=== PATIENT | male | born 1975 | race Caucasian/White ===

== ENCOUNTER → 2019-09-16 | Outpatient (CLI) | payer BC ==
[~2019-09-16] MED LIST: BACTRIM DS 8001 TA1 PO; CLINDAMYCIN HC300 MG PO; FLEXERIL10 MG PO; MOTRIN800 MG PO
== END | disposition home or self-care (01) ==
LOC: COVID19 12:16
DX: Z03.818 Encounter for observation for suspected exposure to other biological agents ruled out (principal); Z79.899 Other long term (current) drug therapy

== ENCOUNTER 2021-04-01 08:20 | Emergency (ER) | payer OTHER, BC ==
[~2021-04-01] VITALS: Ht 180.3 cm; Wt 99.8 kg
== END 2021-04-01 09:29 | disposition short-term general hospital (02) ==
LOC: ED 08:20
DX: T22.212A Burn of second degree of left forearm, initial encounter (principal); T24.201A Burn of second degree of unspecified site of right lower limb, except ankle and foot, initial encounter; T24.202A Burn of second degree of unspecified site of left lower limb, except ankle and foot, initial encounter; T25.222A Burn of second degree of left foot, initial encounter; T23.272A Burn of second degree of left wrist, initial encounter; T23.202A Burn of second degree of left hand, unspecified site, initial encounter; T31.10 Burns involving 10-19% of body surface with 0% to 9% third degree burns; I10 Essential (primary) hypertension; X12.XXXA Contact with other hot fluids, initial encounter; Y93.89 Activity, other specified; Y92.89 Other specified places as the place of occurrence of the external cause; Y99.8 Other external cause status

== ENCOUNTER 2024-06-20 10:20 | Emergency (ER) | payer OTHER, BC ==
[~2024-06-20] VITALS: Ht 180.3 cm; Wt 99.8 kg
[2024-06-20] MEDS ORDERED: SODIUM CHLORIDE 0.9% 1,000 ML IV ONE (10:50)
[2024-06-20 11:03] LABS: BASO # 0.1 10*3/uL (0.0-0.1); BASO % 0.7 % (0.0-1.0); EOS # 0.1 10*3/uL (0.0-0.4); EOS % 1.4 % (1.0-4.0); MEAN CELL VOLUME 87.7 fl (80.0-94.0); MEAN CORPUSCULAR HGB 29.8 pg (27.0-31.0); MEAN PLATELET VOLUME 9.4 fl (9.6-12.3); MONO # 0.5 10*3/uL (0.1-1.0); MONO % 5.3 % (3.0-9.0); NEUT # 4.7 10*3/uL (2.3-7.9); NEUT % 55.6 % (47.0-73.0); PLATELET COUNT AUTOMATED 292 10*3/uL (130-400); RED BLOOD COUNT 5.13 10*6/uL (4.50-5.90); RED CELL DISTRI WIDTH 12.2 % (0-14.5); WHITE BLOOD COUNT 8.5 10*3/uL (4.8-10.8)
[2024-06-20] MEDS ORDERED: Ondansetron Hydrochloride 4 MG/2 ML VIAL IV ONE (11:25)
[2024-06-20] MEDS ORDERED: MORPHINE Sulfate 2 MG/ML SYR IV ONE (11:25)
[2024-06-20 11:29] LABS: BUN 10 mg/dl (9-23); CHLORIDE 102 mmol/L (98-107); CPK 480 U/L (34-171); POTASSIUM 3.5 mmol/L (3.4-5.1)
== END 2024-06-20 12:02 | disposition short-term general hospital (02) ==
LOC: ED 10:20
PROVIDERS: Emergency Medicine
DX: T20.50XA Corrosion of first degree of head, face, and neck, unspecified site, initial encounter (principal); T20.57XA Corrosion of first degree of neck, initial encounter; T23.571A Corrosion of first degree of right wrist, initial encounter; T20.511A Corrosion of first degree of right ear [any part, except ear drum], initial encounter; T26.92XA Corrosion of left eye and adnexa, part unspecified, initial encounter; T26.91XA Corrosion of right eye and adnexa, part unspecified, initial encounter; Y93.89 Activity, other specified; Y92.69 Other specified industrial and construction area as the place of occurrence of the external cause; Y99.0 Civilian activity done for income or pay